=== PATIENT | male | born 1985 | race Caucasian/White ===

== ENCOUNTER 2016-10-29 12:12 | Emergency (ER) ==
[2016-10-29 12:26] VITALS: BP 113/60
--- NOTE | 2016-10-29 12:58 | PROVIDER DOCUMENTATION ---
HPI-Rash/Wound/ReCheck - General Chief Complaint: Sores/Lesions Stated Complaint: POSS STAPH ON FACE Time Seen by Provider: 10/29/16 12:55 Source: patient Allergies/Adverse Reactions: Allergies Allergy/AdvReac Type Severity Reaction Status Date / Time ketorolac tromethamine * Allergy Severe ANAPHYLAXIS Verified 09/06/16 14:45 [From Toradol] sumatriptan [From Imitrex] Allergy Intermediate HIVES Verified 09/06/16 14:45 sumatriptan succinate * Allergy Intermediate HIVES Verified 09/06/16 14:45 [From Imitrex] naproxen Allergy Unknown Unknown Verified 09/06/16 14:45 tramadol Allergy Unknown Unknown Verified 09/06/16 14:45 aspirin Allergy Unknown Verified 09/06/16 14:45 Home Medications: Metoclopramide [Reglan] 10 mg PO DAILY 09/06/16 - History of Present Illness-Dermatology Nature of Presenting Problem: 31 y/o WM c/o lesion on the left face under his briggs he first noticed yesterday , no hx of MRSA. States it began papular, tired to pop it now spreading. Denies purulent drainage. Denies pre-arrival treatments. Denies fevers, chills or night sweats, denies neck pain or throat swelling. ED Head and Neck: 1 - lesion Review of Systems - Adult - REVIEW OF SYSTEMS - ADULT Constitutional: reports: no symptoms reported. denies: chills, fever, fatique Eyes: reports: no symptoms reported. denies: blurred vision, double vision, eye pain Ears, Nose, Mouth & Throat: reports: no symptoms reported. denies: ear pain, nose pain, throat pain Cardiovascular: reports: no symptoms reported. denies: chest pain, palpitations Respiratory: reports: no symptoms reported. denies: cough, shortness of breath , wheezing Gastrointestinal: reports: no symptoms reported. denies: abdominal pain, diarrhea, nausea, vomiting Genitourinary: reports: no symptoms reported. denies: incontinence Musculoskeletal: reports: no symptoms reported. denies: bone pain, back pain, muscle aches, neck pain Integumentary: reports: see HPI, skin sores/ulcer Neurological: reports: no symptoms reported. denies: headache/migraines Psychiatric: reports: no symptoms reported Endocrine: reports: no symptoms reported Hematologic/Lymphatic: reports: no symptoms reported Allergic/Immunologic: reports: no symptoms reported All Other Systems: Reviewed and Negative Past History - Adult - PAST MEDICAL HISTORY-ADULT Review of Records: reports: Old Records Reviewed, Nursing Assessment Review, Medications Reviewed, Social history reviewed & non-contributory. Major Childhood Illnesses: reports: denies history Cardiovascular: reports: HTN, hyperlipidemia Respiratory: reports: denies history Gastrointestinal: reports: hepatitis Genitourinary: reports: denies history Musculoskeletal: reports: denies history Neurological: reports: headaches/migraines, Seizures/Epilepsy Psychiatric: reports: ptsd, other (drug use) Endocrine/Immune: reports: denies history Other Conditions: reports: denies history - PRIOR SURGERIES/PROCEDURES Surgical/Procedure History: reports: hernia repair, orthopedic (extremity) ( hand ( left)) - IMMUNIZATION STATUS Childhood Immunizations: UTD, See Nurse Assessment Flu Vaccine: See Nurse Assessment - FAMILY HISTORY Family History: reviewed, not pertinent Physical Exam-General - PHYSICAL EXAM-ADULT Initial Vital Signs Reviewed: Yes - CONSTITUTIONAL General Appearance: appears well, alert, no apparent distress - EYES Eyes: PERRL/EOMI, pink conjunctivae - HEAD, EARS, NOSE, MOUTH & THROAT HENMT: normocephalic/atraumatic, moist mucous membranes, normal ENT inspection, other (impetigo secondary to follicluitis on the left buccal area under the briggs.) - NECK Neck: non-tender, full range of motion, supple, normal inspection. negative: lymphadenopathy - RESPIRATORY Respiratory: chest non-tender, lungs clear, normal breath sounds, no pleuratic chest pain, no respiratory distress, no accessory muscle use. negative: respiratory distress, decreased breath sounds, accessory muscle use, crackles, rales, rhonchi, wheezing - CARDIOVASCULAR Cardiovascular: normal peripheral pulses, regular rate, rhythm, no edema - LYMPHATIC Lymphatic: no adenopathy - MUSCULOSKELETAL Extremity: normal gait, normal inspection - SKIN Integumentary: normal color, normal turgor, warm/dry, other (impetigo on the face as described above) - NEUROLOGIC Neurologic: grossly normal, no motor/sensory deficits - PSYCHIATRIC Psych/Mental Status: normal mood/affect, normal thought content, normal thought process, oriented x 3 Progress - PLAN OF CARE/RESULTS Progress/Plan/Lab Results: Vital Signs Temp Pulse Resp BP Pulse Ox 10/29/16 12:24 97.8 F 88 18 113/60 100 ketorolac tromethamine * [From Toradol] Allergy (Severe, Verified 09/06/16 14:45 ) ANAPHYLAXIS sumatriptan [From Imitrex] Allergy (Intermediate, Verified 09/06/16 14:45) HIVES sumatriptan succinate * [From Imitrex] Allergy (Intermediate, Verified 09/06/16 14:45) HIVES naproxen Allergy (Unknown, Verified 09/06/16 14:45) Unknown tramadol Allergy (Unknown, Verified 09/06/16 14:45) Unknown aspirin Allergy (Verified 09/06/16 14:45) Unknown Clonazepam [Klonopin] 0.5 mg PO BID PRN #10 tab.rapdis 08/26/16 Metoclopramide [Reglan] 10 mg PO DAILY 09/06/16 Mupirocin Ointment [Bactroban Ointment] 1 applicatn TOP TID #1 tube 10/29/16 Sulfamethoxazole/Trimethoprim [Bactrim Ds Tablet] 1 each PO BID #10 tablet 10/29 Departure - Departure Time of Disposition Order: 12:57 DIAGNOSIS: Impetigo Disposition: HOME 01 Certified Medical Emergency: Emergent Condition: Stable Additional Instructions: Don't shave or use briggs oil until resolved. ED Follow Up Instructions: You have been treated by a care provider in the Emergency Department. These instructions are being provided to you so you can have an understanding of how to care for yourself upon discharge. Upon discharge from the Emergency Department, you are responsible for making arrangements for follow-up care by a physician of your choice. Take all prescribed medications as directed. Return to the Emergency Department immediately for any new or worsening symptoms. You may call the Physician Referral phone number at [phone] to obtain a list of Physicians who are taking new patients. Prescriptions: Sulfamethoxazole/Trimethoprim [Bactrim Ds Tablet] 1 each PO BID #10 tablet Mupirocin Ointment [Bactroban Ointment] 1 applicatn TOP TID #1 tube Referrals: None,PCP [Primary Care Provider] - Kurtis Conley MD [STAFF PHYSICIAN] - Forms: Return to School/Parent Work Instructions: Contact Precautions, [id number], Mupirocin skin cream or ointment, Sulfamethoxazole; Trimethoprim, [id number]-TMP tablets Attestation - Physician/ Mid-level Attestation Patient care was provided by Mid-level provider (ACADEMIC RECORDS SPECIALIST/PA):: Yes Mid-level provider:: Yuko Beaulieu Mid-level documentation review:: The Mid-level provider documentation, treatment plan and medical decision making was reviewed by the physician who agrees with all treatment and medical decision making by the P.
== END 2016-10-29 13:24 | disposition home or self-care (01) ==
LOC: P.ED 12:12
DX: L01.00 Impetigo, unspecified (principal); L98.9 Disorder of the skin and subcutaneous tissue, unspecified; I10 Essential (primary) hypertension; E78.5 Hyperlipidemia, unspecified; K75.9 Inflammatory liver disease, unspecified; R51 Headache; F43.10 Post-traumatic stress disorder, unspecified; Z79.899 Other long term (current) drug therapy
CPT/HCPCS: 99281